=== PATIENT | male | born 1965 | race Caucasian/White ===

== ENCOUNTER 2024-04-05 12:52 | Emergency (ER) | payer OTHER, SELFPAY ==
[2024-04-05 12:55] VITALS: BP 169/98
--- NOTE | 2024-04-05 14:21 | ED.GENMED ---
History of Present Illness
General
Chief Complaint: Dizziness
Source: patient and spouse
Exam Limitations: none
Time Seen by Provider: 04/05/24 13:50
Nursing documentation reviewed up to this point in time: agreed with
Travel History
Have you had any contact with someone who has COVID-19?: No
Do you have any symptoms of coronavirus? Fever > 100 degrees, chills, cough, shortness of breath, sore throat, loss of taste or smell, muscle aches, or headache?: No
History of Present Illness
History of Present Illness:
59-year-old male history of hypertension presents with dizziness like the room spinning started acutely over the weekend after bending down while playing golf, felt like he was was drunk on a ship, no slurred speech no arm or leg weakness, mild
nausea without vomiting no visual changes, had a few alcoholic drinks later in the evening, woke up the next day still feeling like he drank too much, symptoms have gradually improved since then, he works in [employer], has been out in the heat a
lot lately, working long days,
Past History
Past History
ED Past Medical History: HTN
ED Past Surgical History: Cholecystectomy
Patient has exhibited threatening behavior?: No
PSI?: No
Social History
Tobacco: Non-smoker
Alcohol: Occasional
Drug: None
Personal:
Living: with family
Employment: Employed
Review of Systems
Review of Systems
All Other Systems: Not applicable
Constitutional: Denies fever or fatigue
EENT: Reports no symptoms
Respiratory: Reports no symptoms
Cardiac: Reports no symptoms
ABD/GI: Reports nausea
: Reports no symptoms
Musculoskeletal: Reports no symptoms
Neurological: Reports dizzy; Denies headache, weakness or numbness
Endocrine: Reports no symptoms
Hematologic/Lymphatic: Reports no symptoms
Phy Exam
Physical Exam
Physical Exam:
Physical Exam
General: 59-year-old male nontoxic normal speech, clear thought process
Neck: Lips are slightly dry TMs are clear
Heart: s1/s2 regular rate and rhythm, no murmur. equal radial pulses.
Lungs: no acute respiratory distress. clear bilaterally
Abdomen: Nontender
Neuro: alert and oriented. no focal neurological deficits normal [id number], muscle strength 5 out of 5 no facial
Skin: no rash
Psychiatric: well kept. interactive and cooperative
Extremities: no edema.
Course
Orders/Labs/Results
Orders:
Orders
04/05/24 12:56
Electrocardiogram (*1) Urgent
Reason for Study: Vertigo / Dizzy
EKG- Treatment ONCE
04/05/24 14:08
0.9% Sodium Chloride 1000 ml [Nss] 1,000 ml IV BOLUS
Dexamethasone Sod Phosphate [Decadron] 10 mg IV NOW STA
04/05/24 14:12
Physical Therapy Consult [Pt Eval And Treat] Urgent
Treatment: vestibular
Activity Level: Out of Bed-Early Mobility
04/05/24 14:16
Complete Blood Count/With Diff Urgent
Comprehensive Metabolic Panel Urgent
Abnormal Lab Results
04/05/24
14:16
RBC 4.64 L 10^6/uL
(4.70-6.10)
MCV 94.6 H fL
(80.0-94.0)
MCH 32.5 H pg
(27.0-31.0)
Absolute Lymphs (auto) 1.0 L 10^3/uL
(1.2-3.4)
Lymphocytes % 14.8 L %
(20.5-51.1)
Monocytes % 9.6 H %
(1.7-9.3)
Glucose 139 H mg/dl
(70-99)
04/05/24 14:16
04/05/24 14:16
Vital Signs
Initial and Last Documented VS:
Initial Vital Signs
Temp Pulse Resp BP Pulse Ox
98.6 F 88 18 169/98 95
04/05/24 12:55 04/05/24 12:55 04/05/24 12:55 04/05/24 12:55 04/05/24 12:55
Last Documented Vital Signs
Temp Pulse Resp BP Pulse Ox
98.6 F 88 18 169/98 95
04/05/24 12:55 04/05/24 12:55 04/05/24 12:55 04/05/24 12:55 04/05/24 12:55
MDM/Problems Addressed
Differential Diagnosis Includes:
Positional vertigo dehydration, labyrinthitis, doubt intracerebral hemorrhage or stroke by history and physical
MDM/Problems Addressed:
Dizziness
Chronic conditions affecting care: HTN
Acute Exacerbation and/or Progression of Chronic Illness: HTN
*Pulse Oximetry
Patient hypoxic: no
*EKG
Interpreted by ED Provider?: Yes
Interpretation: normal
Comparison EKG: no comparison EKG present
Heart Rate: 78
Rate: normal
Rhythm: sinus
Ischemia: no ischemia
*Oliver Filter Operator Interpretation
Rate: normal
Interpretation: normal
Rhythm: sinus
*Critical Care Note
Total Time (30-74mins, 75-104mins- exclusive of procedures): Not Applicable
Update Note
Update Note:
Update 3:30 PM reviewed with physical therapy no reproducible nystagmus
On exam patient feeling better will add is a liter saline complete discharged home encourage him to drink plenty of fluid limit alcohol
ED Attending Note
-
Portions of this chart may have been created with voice recognition software.� Occasional wrong word or��sound alike� substitutions may have occurred due to the inherent limitations of voice recognition software.
Discharge Plan
Departure
Patient Disposition: Home (Routine Discharge)
Date of Disposition: 04/05/24
Time of Disposition: 15:43
Patient with high blood pressure during this ER visit?: No
Condition: Good
Discharge Problem:
Vertigo
Instructions: Vertigo (a Type of Dizziness) (DC), Dizziness
Prescriptions:
New
meclizine [Antivert] 25 mg tablet,chewable
25 mg PO Q8HPRN PRN (Reason: nausea or vertigo) Qty: 20 0RF
No Action
hydrocodone-acetaminophen [Vicodin HP] 10-300 mg tablet
1 tab PO Q6H PRN (Reason: pain) Qty: 7 0RF
Referrals:
FREDY EARL DO [Family Provider] - Next open appointment
Activity Restrictions/Additional Instructions:
Drink plenty of fluids
Limit your alcohol intake
Interventions
Interventions:
*Risk Screen - Suicide Last Done: 04/05/24 12:55
*General Assessment Last Done: 04/05/24 12:55
*Neglect/Abuse Screening Last Done: 04/05/24 12:55
*ED COVID-19 Vaccine History Last Done: 04/05/24 12:55
Discharge Date and Time
Print Language: PAKIST[place]
[2024-04-05 14:31] LABS: % Basophils 0.5 % (0-2); % Eosinophils 1.9 % (0-6); % Immature Granulocytes 0.3 % (0-0.5); % Lymphocytes 14.8 % (20.5-51.1); % Monocytes 9.6 % (1.7-9.3); % Neutrophils 72.9 % (42.2-75.2); Absolute Eosinophils 0.1 10^3/uL (0-0.7); Absolute Monocytes 0.6 10^3/uL (0.1-0.6); Absolute Neutrophils 4.7 10^3/uL (1.4-6.5); Hematocrit 43.9 % (39.0-52.0); Hemoglobin 15.1 g/dL (13.0-18.0); Mean Corp Hgb Conc. 34.4 g/dL (33.0-37.0); Mean Corpuscular Hgb 32.5 pg (27.0-31.0); Mean Corpuscular Volume 94.6 fL (80.0-94.0); Mean Platelet Volume 10.4 fL (7.4-10.4); Nucleated Red Blood Cells % 0 % (-); Platelet Count 219 10^3/uL (130-400); Red Blood Cell Count 4.64 10^6/uL (4.70-6.10); Red Cell Dist. Width 13.2 % (11.5-14.5); White Blood Cell Count 6.5 10^3/uL (4.8-10.8)
[2024-04-05 14:44] LABS: ALT (SGPT) 26 U/L (0-50); AST (SGOT) 26 U/L (17-59); Albumin 4.1 g/dl (3.5-5.0); Alkaline Phosphatase 66 U/L (38-126); Blood Urea Nitrogen 10 mg/dl (9-20); Calcium 9.3 mg/dl (8.4-10.2); Carbon Dioxide 28 mmol/L (22-30); Chloride 106 mmol/L (98-107); Glucose 139 mg/dl (70-99); Potassium 4.2 mmol/L (3.5-5.1); Sodium 140 mmol/L (135-145); Total Bilirubin 0.7 mg/dl (0.2-1.3); eGFR > 60.00
[2024-04-05] MEDS: DECADRON 10 MG IV (14:45)
[2024-04-05] MEDS: NSS 1000 IV (14:45)
[2024-04-05 15:30] VITALS: BP 158/98; BP 162/91
== END 2024-04-05 16:20 | disposition home or self-care (01) ==
LOC: EMR 12:52
PROVIDERS: Emergency Medicine; EMERGENCY PHYSICIAN Emergency Medicine; FAMILY PHYSICIAN Family Medicine Sports Medicine
DX: R42 Dizziness and giddiness (principal); I10 Essential (primary) hypertension
CPT/HCPCS: 99284; 96374; 96361; 80053; 85025; 93005